=== PATIENT | female | born 1935 | race Caucasian/White ===

== ENCOUNTER 2023-01-01 15:39 | Emergency (ER) | payer OTHER ==
[~2023-01-01] VITALS: Ht 154.9 cm; Wt 53.6 kg
[~2023-01-01 15:39] MED LIST: ALEN10TA2 PO; FENT12DI TD; FOLITAB45 OR; LIDO5DIS21 TOP; LISI-275 PO
[2023-01-01 15:50] VITALS: BP 158/91; PULSE 99; RESP 18; O2SAT 98
== END 2023-01-01 22:54 | disposition left against medical advice (07) ==
LOC: ER 15:39
DX: R21 Rash and other nonspecific skin eruption (principal); Z53.21 Procedure and treatment not carried out due to patient leaving prior to being seen by health care provider